=== PATIENT | female | born 1980 | race Caucasian/White ===

== ENCOUNTER → 2016-10-28 | Outpatient (CLI) | payer OTHER | LOC: EMI 14:00 | DX: G35 Multiple sclerosis (principal); M47.892 Other spondylosis, cervical region | CPT/HCPCS: 70553; 72156; A9577; J7050 ==

== ENCOUNTER → 2021-04-03 | Outpatient (CLI) | payer OTHER | LOC: EMI 08:12 | DX: G35 Multiple sclerosis (principal); R00.2 Palpitations; M21.379 Foot drop, unspecified foot; M48.8X4 Other specified spondylopathies, thoracic region | CPT/HCPCS: 70553; 72148; 72156; 72157; A9577 ==